=== PATIENT | female | born 2005 | race Caucasian/White ===

== ENCOUNTER 2024-09-17 13:30 | Outpatient (RCR) | payer OTHER, SELFPAY | END 2024-12-19 15:16 | disposition home or self-care (01) | PROVIDERS: Visit Provider Physician Assistant | DX: N94.10 Unspecified dyspareunia (principal); N94.2 Vaginismus; R27.8 Other lack of coordination; Z51.89 Encounter for other specified aftercare | CPT/HCPCS: 97110; 97112; 97140; 97161; 97535 ==